=== PATIENT | male | born 1935 | race Caucasian/White ===

== ENCOUNTER 2017-10-23 07:28 | Outpatient (CLI) | payer OTHER | END 2017-10-23 07:41 | disposition home or self-care (01) | LOC: LAB 07:28 | DX: I10 Essential (primary) hypertension (principal); E07.89 Other specified disorders of thyroid ==

== ENCOUNTER → 2018-01-17 07:12 | Outpatient (CLI) | payer OTHER | END | disposition home or self-care (01) | LOC: LAB 07:12 | DX: E78.4 Other hyperlipidemia (principal); I11.0 Hypertensive heart disease with heart failure; E11.9 Type 2 diabetes mellitus without complications ==

== ENCOUNTER 2018-07-18 07:37 | Outpatient (CLI) | payer OTHER | END 2018-07-18 07:40 | disposition home or self-care (01) | LOC: LAB 07:37 | DX: E11.9 Type 2 diabetes mellitus without complications (principal); I10 Essential (primary) hypertension; E78.49 Other hyperlipidemia ==

== ENCOUNTER → 2018-12-16 07:15 | Outpatient (CLI) | payer OTHER | END | disposition home or self-care (01) | LOC: LAB 07:15 | DX: E11.9 Type 2 diabetes mellitus without complications (principal); I10 Essential (primary) hypertension ==

== ENCOUNTER 2019-05-06 07:34 | Outpatient (CLI) | payer OTHER | END 2019-05-06 10:34 | disposition home or self-care (01) | LOC: LAB 07:34 | DX: I10 Essential (primary) hypertension (principal) ==

== ENCOUNTER → 2019-10-21 07:41 | Outpatient (CLI) | payer OTHER | END | disposition home or self-care (01) | LOC: LAB 07:41 | DX: I10 Essential (primary) hypertension (principal); E11.9 Type 2 diabetes mellitus without complications ==